=== PATIENT | female | born 1985 | race Two or more races ===

== ENCOUNTER 2016-07-28 19:07 | Emergency (ER) | payer MEDICAID ==
[~2016-07-28] VITALS: Ht 154.9 cm; Wt 113.4 kg
[~2016-07-28 19:07] MED LIST: NORGTAB33; PREN-129
[2016-07-28 22:03] LABS: Urine Bilirubin Negative (Negative); Urine Color PINK (Yellow); Urine Glucose Normal (Normal); Urine Ketone Negative (Negative); Urine Nitrite Negative (Negative); Urine RBC 2596 /hpf (0 - 4); Urine Squamous Epithelial Cell FEW /hpf (<5); Urine Urobilinogen Normal (Negative); Urine pH 5.5 (5.0-8.0)
[2016-07-28 22:06] LABS: Urine Blood 3+ /uL (Negative)
[2016-07-28 23:40] VITALS: BP 127/87
[2016-07-28] MEDS ORDERED: IBUPROFEN 800 MG TAB PO ONE (23:45)
== END 2016-07-29 00:15 | disposition home or self-care (01) ==
LOC: ER 19:38
DX: N39.0 Urinary tract infection, site not specified (principal); R35.0 Frequency of micturition; M54.5 Low back pain
CPT/HCPCS: 36415; 81001; 81025